=== PATIENT | female | born 1950 ===

== ENCOUNTER 2024-10-04 19:46 | Emergency (ER) | payer MEDICARE, OTHER ==
[~2024-10-04] VITALS: Ht 144.8 cm; Wt 79.0 kg
--- NOTE | 2024-10-04 20:10 | ED.PDOC ---
Musculoskeletal HPI Comments 74y F who presents to the ED for chief complaint of fall injury. Pt states she had fall mechanical fall at approx 6 PM this afternoon. Pt states since fall, she has been having pain moving her RLE, rating the pain 8/10, with associated exacerbating factor of pain and no relieving factors. Pt otherwise denies headache, dizziness, nausea, vomiting, chest pain or shortness of breath. Pt otherwise states she has recently had R hip replacement. Pt denies any associated head injury. Pt otherwise denies any other symptoms at this time. Chief Complaint: fall injury Time Seen by MD: 20:04 Reviewed Notes: Medications, Allergies Information Source: Patient, Relative Mode of Arrival: Wheelchair Brought in by: family member Location: Right Extremity Location: Hip Timing: Minutes, Hours Prehospital treatment: None Severity: Moderate Able to Move Extremity: No Bear Weight: Limited Pain: Severe Mechanism: Spontaneous Circumstances: Fall Onset of Symptoms: Spontaneous Symptoms: Swelling, Pain DVT Risk Factors: NONE Last Tetanus: Unknown Associated signs and symptoms: Hip pain Past Medical History PAST MEDICAL HISTORY: DM, High Lipids, HTN Surgical History (Other): R knee replacement EDUCATION PROGRAM SPECIALIST History: Denies all EDUCATION PROGRAM SPECIALIST Hx Family History Family History: Reviewed,noncontributory to illness Social History Smoker: Non-Smoker Alcohol: Denies ETOH Use Drugs: Denies Drug Use Lives In: Home Constitutional: denies: chills, diaphoresis, fatigue, fever, malaise, sweats, weakness, others EENTM: denies: blurred vision, double vision, ear bleeding, ear discharge, ear drainage, ear pain, ear ringing, eye pain, eye redness, hearing loss, mouth pain, mouth swelling, nasal discharge, nose bleeding, nose congestion, nose pain, photophobia, tearing, throat pain, throat swelling, voice changes, others Respiratory: denies: cough, hemoptysis, orthopnea, SOB at rest, shortness of breath, SOB with excertion, stridor, wheezing, others Cardiovascular: denies: chest pain, dizzy spells, diaphoresis, Dyspnea on exertion, edema, irregular heart beat, left arm pain, lightheadedness, palpitations, PND, syncope, others Gastrointestinal: denies: abdomen distended, abdominal pain, blood streaked bowels, constipated, diarrhea, dysphagia, difficulty swallowing, hematemesis, melena, nausea, poor appetite, poor fluid intake, rectal bleeding, rectal pain, vomiting, others Genitourinary: denies: abnormal vagina bleeding, burning, dyspareunia, dysuria, flank pain, frequency, hematuria, incontinence, pain, , vagina discharge, urgency, others Neurological: denies: dizziness, fainting, headache, left sided numbness, left sided weakness, numbness, paresthesia, pre-existing deficit, right sided numbness, right sided weakness, seizure, speech problems, tingling, tremors, weakness, others Musculoskeletal: reports: joint pain (R hip), joint swelling (R hip); denies: back pain, gout, muscle pain, muscle stiffness, neck pain, others Integumetry: denies: bruises, change in color, change in hair/nails, dryness, laceration, lesions, lumps, rash, wounds, others Allergic/Immunocompromised: denies: Difficulty Healing, Frequent Infections, Hives, Itching, others Hematologic/Lymphatic: denies: anemia, blood clots, easy bleeding, easy brui sing, swollen glands, others Endocrine: denies: excessive hunger, excessive sweating, excessive thirst, ex cessive urination, flushing, intolerance to cold, intolerance to heat, unexplained weight gain, unexplained weight loss, others Psychiatric: denies: anxiety, bipolar disorder, depression, hopeless, panic disorder, schizophrenia, sleepless, suicidal, others All Other Systems: Reviewed and Negative Physical Exam General Appearance: Mild Distress HEENT: Normal ENT Inspection, Pharynx Normal, TMs Normal Neck: Full Range of Motion, Non-Tender, Normal, Normal Inspection Respiratory: Chest Non-Tender, Lungs Clear, No Accessory Muscle Use, No Respiratory Distress, Normal Breath Sounds Cardiovascular: No Edema, No JVD, No Murmur, No Gallop, Normal Peripheral Pulses, Regular Rate/Rhythm Breast Exam: Deferred Gastrointestinal: No Organomegaly, Non Tender, No Pulsatile Mass, Normal Bowel Sounds, Soft Genitalia: Deferred Pelvic: Deferred Rectal: Deferred Extremities: No calf tenderness, Normal capillary refill, No pedal edema Musculoskeletal : Location: Right Apperance: Limited ROM, Tenderness: Mild Neurologic: Alert, criminal court judge II-XII nml as Tested, No Motor Deficits, Normal Affect, Normal Mood, No Sensory Deficits Cerebellar Function: Normal Reflexes: Normal Skin: Dry, Normal Color, Warm Lymphatic: No Adenopathy Was a procedure done? Was a procedure done?: No Differential Diagnosis EXT Differential Diagnosis: Fracture, Sprain, Dislocation, Contusion, Strain, Rheumatoid, Arthritis X-Ray, Labs, Meds, VS Vital Signs Date Time Temp Pulse Resp B/P (MAP) Pulse Ox O2 Delivery O2 Flow Rate FiO2 10/04/24 19:50 98.0 98 20 159/72 (101) 96 X-ray of the right knee shows no sign of any fracture X-ray of the right hip shows no sign of any fracture The patient will follow up with the orthopedic surgeon () in outpatient clinic The patient was discharged at this time We did discuss the findings with the patient The patient was given one [place] here in the emergency department's for the pain. Images Reviewed?: Images reviewed and evaluated by me Time of 1ST Reevaluation: 20:35 Reevaluation 1ST: Unchanged Patient Education/Counseling: Diagnosis, Treatment, Prognosis, Need For Follow Up Family Education/Counseling: Diagnosis, Treatment, Prognosis, Need For Follow Up Additional Information I reviewed the following notes from patient's past medical encounters: The following tests were ordered, and results were reviewed by me: R hip x-ray, R knee x-ray Additional Information was gathered from interviewing the following independent historians: family member I reviewed and agreed with the following test results read by other providers: radiologist I discussed treatment and results with medical personnel and: family member Departure 1 Departure Time of Disposition: 20:43 Impression: Primary Impression: Contusion of right knee Qualified Codes: S80.01XA - Contusion of right knee, initial encounter Additional Impressions: History of fall Contusion, hip Qualified Codes: S70.01XA - Contusion of right hip, initial encounter Disposition: HOME / SELF CARE / HOMELESS Condition: Fair Discharged With: Self Critical Care Note Critical Care Time?: No Stability Stability form required: No Heart Score Heart Score: Heart Score Response (Comments) Value History N/A 0 EKG N/A 0 Age N/A 0 Risk Factors N/A 0 Troponin N/A 0 Total 0 I personally scribed for ZAKI ALMAZAN MD ([email or web address]) on 10/04/24 at 20:10. Electronically submitted by Liana Keyes ([email or web address]). I personally scribed for ZAKI ALMAZAN MD ([email or web address]) on 10/04/24 at 20:16. Electronically submitted by Liana Keyes ([email or web address]). ZAKI ALMAZAN MD Oct 04, 2024 20:10
--- NOTE | 2024-10-04 20:39 | DVH ---
XY R HIP COMPLETE XRAY, INDICATION: fall TECHNICAL DATA: Frontal and frog lateral views were obtained of the right hip.] COMPARISON: None Findings/ IMPRESSION: Limited evaluation due to overlying body habitus and poor x-ray penetration. No gross fracture or dis location. No radiopaque foreign objects. Likely chronic compression deformity in the lower lumbar spi ne.
[2024-10-04] MEDS ORDERED: HYDROcodone-ACET 5/325MG TAB PO ONE (20:45)
--- NOTE | 2024-10-04 20:45 | DVH ---
CLINICAL INFORMATION: 74 years old, Female; fall. TECHNIQUE: 3 views of the right knee were obtained. COMPARISON: None Findings/ IMPRESSION: No evidence of acute bony abnormality. Status post total right knee arthroplasty with intact appearin g orthopedic hardware. No radiopaque foreign objects. Tiny osseous fragments posterior to the medial joint space , likely chronic.
[2024-10-04 21:03] VITALS: BP 140/63; PULSE 87; RESP 18; TEMP 98; O2SAT 98
== END 2024-10-04 21:03 | disposition home or self-care (01) ==
LOC: ER 19:46 → EEVIPCON 19:46 → ER 21:03
DX: S70.01XA Contusion of right hip, initial encounter (principal); S80.01XA Contusion of right knee, initial encounter; I10 Essential (primary) hypertension; E11.9 Type 2 diabetes mellitus without complications; E78.5 Hyperlipidemia, unspecified; Z96.641 Presence of right artificial hip joint; Z96.651 Presence of right artificial knee joint; W18.39XA Other fall on same level, initial encounter; Y93.89 Activity, other specified; Y92.89 Other specified places as the place of occurrence of the external cause; Y99.8 Other external cause status
CPT/HCPCS: 73502; 73562